=== PATIENT | female | born 1995 | race Caucasian/White ===

== ENCOUNTER 2017-12-24 11:07 | Observation (INO) ==
--- NOTE | 2017-12-24 11:15 | Emergency Department Note ---
Disposition Clinical Impression: Abdominal pain Qualifiers: Abdominal location: right lower quadrant Qualified Code(s): R10.31 - Right lower quadrant pain Nausea & vomiting Qualifiers: Vomiting type: unspecified Vomiting Intractability: intractable Qualified Code( s): R11.2 - Nausea with vomiting, unspecified Disposition: Admitted As Inpatient Condition: Good Time of Disposition: 16:43 General Adult HPI - General Chief complaint: ED Abdominal Pain Stated complaint: abd pain Time Seen by Provider: 12/24/17 11:14 Source: patient Mode of arrival: ambulatory Limitations: no limitations Nursing Notes Reviewed: Yes Vital Signs Reviewed: Yes - History of Present Illness HPI Narrative: 2 day history of abdominal pain. Started her umbilicus yesterday migrated to her right lower quadrant this morning. Nausea vomiting this morning as well. Does have chills but has not taken her temperature. States the pain as a cramping nature. Pain Scale: 8 - Related Data Home Medications Medication Instructions Recorded Confirmed Levonorgestrel [Mirena] 1 each IY PRN PRN 06/15/17 12/24/17 Allergies Allergy/AdvReac Type Severity Reaction Status Date / Time No Known Allergies Allergy Verified 12/24/17 16:26 All systems ED: reviewed and negative except as stated. Constitutional: Reports: chills. Denies: fever Cardiovascular: Denies: chest pain, palpitations, syncope Respiratory: Denies: cough, dyspnea Gastrointestinal: Reports: abdominal pain, nausea, vomiting. Denies: diarrhea, hematemesis, melena, hematochezia Genitourinary: Denies: urgency, dysuria, frequency, hematuria Musculoskeletal: Reports: back pain (Right flank pain that radiates around to her right lower quadrant.) Integumentary: Denies: rash, abrasion Neurological: Denies: headache, weakness Past Medical History - Past Medical History Attestation: Yes The following information was validated with the patient. Source: patient Medical history: Reports: non-contributory Surgical history: Reports: orthopedic, other, other (Exploratory laparoscopy) Psychiatric history: Reports: no psych history BUNDLE TIER history: Reports: no BUNDLE TIER history - Social History Smoking Status: Never smoker Smokeless Tobacco Status: No Alcohol use: Reports: none Drug use: Reports: none Physical Exam - General Limitations: no limitations General appearance: alert, in no apparent distress - Head Head exam: atraumatic, normocephalic, normal inspection - Eye Eye exam: Present: normal appearance, PERRL, EOMI. Absent: scleral icterus - ENT ENT exam: normal exam, normal oropharynx, mucous membranes moist - Neck Neck exam: Present: normal inspection, full ROM, trachea midline. Absent: tenderness - Chest Chest inspection: Present: normal inspection, symmetric chest wall rise - Respiratory Respiratory exam: Present: normal lung sounds bilaterally. Absent: respiratory distress, accessory muscle use - Cardiovascular Cardiovascular exam: Present: normal rhythm, tachycardia, normal heart sounds - Abdominal Exam Abdominal exam: Present: soft, tenderness (Exquisitely tender in right lower quadrant. Positive rebound tenderness.) Course Course Narrative: Female patient sitting in bed sent from urgent care. She is holding her right lower quadrant on my exam. She does appear to be in pain. Is in the middle the night around 2-3 this morning she woke up with right lower quadrant abdominal pain. She states yesterday she had some pain around her umbilicus. His pain is her right lower quadrant as well as her right flank. 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 She reports that last week she had her urethra dilated. She states this has happened several times. She denies any urinary symptoms. She denies any burning on urination or blood in her urine. He had vomiting this morning. At urgent care she was given Phenergan. She states she does not need nausea medication at this time. She is also given Toradol for pain. We will give her fentanyl as she does appear to still be in pain. We will get a basic lab workup on patient inclusive of a UA and urine prey we will also scan patient's abdomen. And concern for possible appendicitis versus a right kidney stone as she does have flank pain. She is exquisitely tender in her right lower quadrant. - Reevaluation(s) Reevaluation #1: Patient reevaluated. She is still having Tenderness in her right lower quadrant. She is also still nauseated. Chilling at this time with multiple blankets on. We will provide her with Tylenol and fluids. We will admit her to the hospital for intractable nausea vomiting. Time: 15:21 - Consultations Consultation #1: Dr Canchola accepted Pt in stable condition Time: 16:40 Vital Signs Temperature 98.4 F 03/17/18 11:08 Pulse Rate 132 12/24/17 11:08 Respiratory Rate 16 12/24/17 11:08 Blood Pressure 135/75 12/24/17 11:08 O2 Sat by Pulse Oximetry 100 12/24/17 11:08 Temperature 98.4 F 12/24/17 16:56 Pulse Rate 117 12/24/17 16:56 Respiratory Rate 18 12/24/17 16:56 Blood Pressure 121/81 12/24/17 16:56 O2 Sat by Pulse Oximetry 100 12/24/17 16:56 Oxygen Delivery Oxygen Delivery Room Air Medical Decision Making - Medical Records Medical records reviewed: Yes I reviewed the patient's medical records. - Lab Data Lab results reviewed: Yes I reviewed the patient's lab results. Result diagrams: 12/24/17 11:22 12/24/17 11:22 Lab Results 12/24/17 12/24/17 12/24/17 Range/Units 11:22 11:22 11:22 WBC 11.5 H (4.3-11.1) K/mcL RBC 5.14 H (3.82-4.97) M/mcL Hgb 14.0 (11.5-15.4) g/dL Hct 42.9 (35.3-44.9) % MCV 83.5 (83.0-100.0) fL MCH 27.2 L (28.0-33.3) pg MCHC 32.6 (31.6-35.5) g/dL RDW 13.1 (11.5-14.5) % Plt Count 324 (140-400) K/mcL MPV 9.1 L (9.4-12.4) fL Immature Gran % 0.2 (0-4) % Seg Neutrophils % 80.1 % Lymphocytes % 11.2 % Monocytes % 8.0 % Eosinophils % 0.2 % Basophils % 0.3 % Neutrophils # 9.2 H (1.6-8.9) K/mcL Lymphocytes # 1.3 (0.6-4.6) K/mcL Monocytes # 0.9 (0.0-1.3) K/mcL Eosinophils # 0.0 (0.0-0.6) K/mcL Basophils # 0.0 (0.0-0.2) K/mcL PT 14.1 H (9.4-12.1) Seconds INR 1.3 APTT 29.4 (26.0-36.0) Seconds Sodium 134 L (136-145) mEq/L Potassium 3.1 L (3.5-5.1) mEq/L Chloride 103 (98-107) mEq/L Carbon Dioxide 25 (23-29) mEq/L BUN 8 (6-20) mg/dL Creatinine 0.68 (0.60-1.20) mg/dL Est GFR ( Amer) > 60 (> 60) Est GFR (Non-Af Amer) > 60 (> 60) BUN/Creatinine Ratio 12 (6-26) Glucose 96 (70-105) mg/dL Calculated Osmolality 276 L (280-300) Lactic Acid (0.5-2.2) mmol/L Calcium 9.0 (8.6-10.3) mg/dL Total Bilirubin 0.7 (0.3-1.0) mg/dL Direct Bilirubin 0.2 (0.0-0.2) mg/dL Indirect Bilirubin 0.5 (0.0-1.2) mg/dL AST 15 (13-39) Units/L ALT 13 (7-52) Units/L Alkaline Phosphatase 73 (34-104) Units/L Serum Total Protein 7.4 (6.4-8.9) g/dL Albumin 4.3 (3.5-5.7) g/dL Globulin 3.1 (2.4-3.5) g/dL Albumin/Globulin Ratio 1.4 (1.1-2.2) Lipase 13 (11-82) Units/L Urine Color (Yellow) Urine Clarity (Clear) Urine pH (5.0-8.0) pH Units Ur Specific [place] (1.010-1.025) Urine Protein (Neg-Trace) mg/dL Urine Glucose (UA) (Normal) mg/dL Urine Ketones (Negative) mg/dL Urine Blood (Negative) Urine Nitrite (Negative) Urine Bilirubin (Negative) Urine Urobilinogen (Normal) mg/dL Ur Leukocyte Esterase (Negative) Urine Microscopic RBC (0-3) per hpf Urine Microscopic WBC (0-3) per hpf Ur Squamous Epith Cells (None-Few) per lpf Urine Bacteria (None-Few) per hpf Hyaline Casts (None-Few) per lpf Ur Culture Indicated? (NO) Urine Test (Negative) 12/24/17 12/24/17 12/24/17 Range/Units 11:22 12:57 12:57 WBC (4.3-11.1) K/mcL RBC (3.82-4.97) M/mcL Hgb (11.5-15.4) g/dL Hct (35.3-44.9) % MCV (83.0-100.0) fL MCH (28.0-33.3) pg MCHC (31.6-35.5) g/dL RDW (11.5-14.5) % Plt Count (140-400) K/mcL MPV (9.4-12.4) fL Immature Gran % (0-4) % Seg Neutrophils % % Lymphocytes % % Monocytes % % Eosinophils % % Basophils % % Neutrophils # (1.6-8.9) K/mcL Lymphocytes # (0.6-4.6) K/mcL Monocytes # (0.0-1.3) K/mcL Eosinophils # (0.0-0.6) K/mcL Basophils # (0.0-0.2) K/mcL PT (9.4-12.1) Seconds INR APTT (26.0-36.0) Seconds Sodium (136-145) mEq/L Potassium (3.5-5.1) mEq/L Chloride (98-107) mEq/L Carbon Dioxide (23-29) mEq/L BUN (6-20) mg/dL Creatinine (0.60-1.20) mg/dL Est GFR ( Amer) (> 60) Est GFR (Non-Af Amer) (> 60) BUN/Creatinine Ratio (6-26) Glucose (70-105) mg/dL Calculated Osmolality (280-300) Lactic Acid 1.5 (0.5-2.2) mmol/L Calcium (8.6-10.3) mg/dL Total Bilirubin (0.3-1.0) mg/dL Direct Bilirubin (0.0-0.2) mg/dL Indirect Bilirubin (0.0-1.2) mg/dL AST (13-39) Units/L ALT (7-52) Units/L Alkaline Phosphatase (34-104) Units/L Serum Total Protein (6.4-8.9) g/dL Albumin (3.5-5.7) g/dL Globulin (2.4-3.5) g/dL Albumin/Globulin Ratio (1.1-2.2) Lipase (11-82) Units/L Urine Color Yellow (Yellow) Urine Clarity Clear (Clear) Urine pH 6.5 (5.0-8.0) pH Units Ur Specific [place] < 1.005 L (1.010-1.025) Urine Protein Negative (Neg-Trace) mg/dL Urine Glucose (UA) Normal (Normal) mg/dL Urine Ketones Negative (Negative) mg/dL Urine Blood Small H (Negative) Urine Nitrite Negative (Negative) Urine Bilirubin Negative (Negative) Urine Urobilinogen Normal (Normal) mg/dL Ur Leukocyte Esterase Negative (Negative) Urine Microscopic RBC 5-15 H (0-3) per hpf Urine Microscopic WBC 0-3 (0-3) per hpf Ur Squamous Epith Cells Moderate H (None-Few) per lpf Urine Bacteria None Seen (None-Few) per hpf Hyaline Casts None Seen (None-Few) per lpf Ur Culture Indicated? NO (NO) Urine Test Negative (Negative) - Radiology Data Radiology results reviewed: Yes I reviewed the patient's radiology results. Abdomen/Pelvis CT 12/24/17 11:45 IMPRESSION: Negative noncontrast CT of the abdomen and pelvis. D/ / Drake Bernstein MD / Drake Bernstein MD Interpreting Provider: Drake Bernstein MD Chest X-Ray 12/24/17 15:20 IMPRESSION: No acute cardiopulmonary findings. D/ / Jaqui Kohli MD / Jaqui Kohli MD Interpreting Provider: Jaqui Kohli MD Attestation Statement - Attestation Attestation: I examined this patient and my medical decision-making was reviewed with the Resident Physician, Dr. Friedman. I agree with the documented findings, disposition and treatment plan as described except to the extent set forth below. 22-year-old white female was sent to us from an urgent care today with a 2 day history of gradually worsening right lower quadrant pain with concern for possible appendicitis. Patient having nausea and vomiting associated with this pain. Patient describes subjective fevers and chills as well. Patient states that the pain radiates through to her back on the right side. Patient denies any urinary symptoms. I agree with patient's physical exam findings as documented. For me patient had tenderness to palpation of the right lower quadrant without peritoneal signs. Immediately stable on arrival does appear uncomfortable we treated her pain with IV meds and antiemetics and laboratory evaluation and urinalysis as well as CT abdomen and pelvis to rule out appendectomy. Patient with mild elevation in white count with left shift. Otherwise remainder of testings unremarkable. CT abdomen and pelvis was within normal limits with no abnormal findings. Patient continues to have ongoing pain and quite uncomfortable and unable tolerate by mouth. We will go ahead and admit the patient for serial abdominal exams and reevaluation. Patient remains hemodynamically stable at this time.
[2017-12-24] MEDS ORDERED: 0.9 % Sodium Chloride 1,000 ML IVC ONE ×2 (11:19→15:18)
[2017-12-24] MEDS ORDERED: Ondansetron 4 MG/2 ML VIAL IVP ONE ×2 (11:45→13:51)
[2017-12-24] MEDS ORDERED: *HR* FentaNYL (PF) 100 MCG/2 ML VIAL IVP ONE (11:46)
[2017-12-24 11:54] LABS: Basophils % 0.3 %; Eosinophils % 0.2 %; Hematocrit 42.9 % (35.3-44.9); Immature Granulocytes % 0.2 % (0-4); Lymphocytes # 1.3 K/mcL (0.6-4.6); Lymphocytes % 11.2 %; Mean Corpuscular HGB Conc 32.6 g/dL (31.6-35.5); Mean Corpuscular Hemoglobin 27.2 pg (28.0-33.3); Mean Corpuscular Volume 83.5 fL (83.0-100.0); Mean Platelet Volume 9.1 fL (9.4-12.4); Monocytes # 0.9 K/mcL (0.0-1.3); Neutrophils # 9.2 K/mcL (1.6-8.9); Platelet Count 324 K/mcL (140-400); Red Blood Count 5.14 M/mcL (3.82-4.97); Red Cell Distribution Width 13.1 % (11.5-14.5); Segmented Neutrophils % 80.1 %
[2017-12-24 12:01] LABS: INR 1.3; Prothrombin Time 14.1 Seconds (9.4-12.1)
[2017-12-24 12:04] LABS: Activated Partial Thrombo Time 29.4 Seconds (26.0-36.0)
[2017-12-24 12:07] LABS: Alanine Aminotransferase 13 Units/L (7-52); Albumin 4.3 g/dL (3.5-5.7); Albumin/Globulin Ratio 1.4 (1.1-2.2); Alkaline Phosphatase 73 Units/L (34-104); Aspartate Amino Transferase 15 Units/L (13-39); BUN/Creatinine Ratio 12 (6-26); Bilirubin,Direct 0.2 mg/dL (0.0-0.2); Bilirubin,Indirect 0.5 mg/dL (0.0-1.2); Bilirubin,Total 0.7 mg/dL (0.3-1.0); Blood Urea Nitrogen 8 mg/dL (6-20); Carbon Dioxide 25 mEq/L (23-29); Chloride 103 mEq/L (98-107); Globulin 3.1 g/dL (2.4-3.5); Glucose 96 mg/dL (70-105); Lipase 13 Units/L (11-82); Osmolality,Calculated 276 (280-300); Potassium 3.1 mEq/L (3.5-5.1); Sodium 134 mEq/L (136-145); Total Protein 7.4 g/dL (6.4-8.9); eGFR For African Americans > 60 (> 60); eGFR For Non-African Americans > 60 (> 60)
[2017-12-24 13:10] LABS: Bilirubin,Urine Negative (Negative); Blood,Urine Small (Negative); Clarity,Urine Clear (Clear); Color,Urine Yellow (Yellow); Glucose,Urine (UA) Normal (Normal); Ketones,Urine Negative (Negative); Leukocyte Esterase,Urine Negative (Negative); Nitrite,Urine Negative (Negative); PH,Urine 6.5 pH Units (5.0-8.0); Protein,Urine Negative (Neg-Trace); Specific Gravity,Urine < 1.005 (1.010-1.025); Urobilinogen,Urine Normal (Normal)
[2017-12-24 13:12] LABS: Bacteria,Urine None Seen per hpf (None-Few); Hyaline Casts,Urine None Seen per lpf (None-Few); Squamous Epithelial Cell,Urine Moderate per lpf (None-Few); WBC,Urine 0-3 per hpf (0-3)
[2017-12-24] MEDS ORDERED: Acetaminophen 325 MG TABLET PO ONE (15:05)
[2017-12-24] MEDS: *HR* Promethazine 25 MG/ML VIAL IVP PRN (17:23)
--- NOTE | 2017-12-24 17:43 | Internal Med History&Physical ---
Date of Encounter: 12/24/17 Time of Encounter: 17:30 Assessment and Plan (1) RLQ abdominal pain Current visit: Yes Status: Acute -Patient with right lower quadrant tenderness to palpation on exam -In the ER, CT of the abdomen showed no acute findings and appendix was normal -Patient also with low-grade temp and slight leukocytosis -Surgery consult with recommendations to treat prophylactically for PID -Ultrasound not available on the weekend for transvaginal ultrasound -Will start patient on IV doxycycline and Rocephin -Patient will also be made nothing by mouth (2) DVT prophylaxis Current visit: No Status: Acute Low risk; patient to ambulate Internal Medicine - H&P: HPI Chief complaint: Right lower quadrant abdominal pain Admitted From: Home Plans for Post Hospital Care: Home History of present illness: Patient is a 22-year-old female who presents to the ER on 12/24/17 due to right lower quadrant abdominal pain. She reported that her right lower quadrant abdominal pain started on 12/23/17 and characterized as sharp with a severity of 8 out of 10 which is intermittent with movement provoking discomfort and nothing giving any relief. Patient reports of associated symptoms of nausea/vomiting and addition to having fevers and chills. Patient reported having a urethral dilation on 12/22/17. Patient also has IUD placed 09/2016 denies any vaginal discharge. Patient does report history of ovarian cyst past. In the ER, CT of the abdomen showed no acute findings and appendix was normal; IUD centrally located in the uterus. Patient was found to have slight leukocytosis (WBC 11.5), tachycardic (HR 103) and low grade temperature of 100.1 Patient will be admitted to medical surgical floor for further management and evaluation. Past Med Surg Social Fam HX - Past Medical History Medical history: non-contributory Psychiatric history: no psych history - Past Surgical History Surgical History: orthopedic, other, other - Social History Smoking Status: Never smoker Smokeless Tobacco Status: No Alcohol use: none Drug use: none - Family History Mother Grandmother Adopted: No Living Status: Still Living Hx Family Cardiac Disorders: Yes (HTN) Grandfather Living Status: Still Living Hx Family Cardiac Disorders: Yes (HTN) Internal Medicine - H&P: Meds Levonorgestrel [Mirena] 1 each IY PRN PRN 06/15/17 [History] 3 Allergy/AdvReac Type Severity Reaction Status Date / Time No Known Allergies Allergy Verified 12/24/17 16:26 All Systems PM: A 10-system review of systems was performed and is negative for pertinent findings except as documented above in the HPI. - Constitutional Vitals: Temp Pulse Resp BP Pulse Ox 98.4 F 117 18 121/81 100 12/24/17 16:56 12/24/17 16:56 12/24/17 16:56 12/24/17 16:56 12/24/17 16:56 General appearance: Present: no acute distress - Eye Eye exam: Present: normal appearance - ENT ENT exam: Present: mucous membranes moist - Respiratory Respiratory exam: Present: CTAB. Absent: accessory muscle use, rales, rhonchi, wheezes - Cardiovascular Cardiovascular exam: Present: RRR, +S1, +S2. Absent: diastolic murmur, gallop, rubs, systolic murmur - GI/Abdominal GI/Abdominal exam: Present: hepatomegaly, normal bowel sounds, soft, tenderness (Right lower quadrant tenderness to palpation). Absent: distended, firm, guarding, rebound, rigid, no peritoneal signs - Extremities Exam Extremities exam: Present: warm. Absent: pedal edema - Neurological Exam Neurological exam: Present: oriented X3 - Skin Skin exam: Present: normal color Internal Med - H&P Results - Labs CBC & Chem 7: 12/24/17 11:22 12/24/17 11:22
[2017-12-24] MEDS ORDERED: Naloxone 0.4 MG/ML INJ IVP PRN (17:48)
[2017-12-24] MEDS: cefTRIAXone 2,000 MG in Water for inj. (sterile) 20 ML 20 ML IVP SCH (18:17)
[2017-12-24] MEDS: 0.9 % Sodium Chloride 1,000 ML IVC SCH (18:17)
[2017-12-24] MEDS: Doxycycline 100 MG in 0.9 % Sodium Chloride Mini Bag 100 ML IVPB SCH (18:41)
[2017-12-25] MEDS: Ketorolac 30 MG/ML VIAL IVP PRN ×2 (00:44→08:03)
[2017-12-25 05:04] LABS: Hematocrit 37.3 % (35.3-44.9); Mean Corpuscular HGB Conc 31.6 g/dL (31.6-35.5); Mean Corpuscular Hemoglobin 27.1 pg (28.0-33.3); Mean Corpuscular Volume 85.6 fL (83.0-100.0); Mean Platelet Volume 9.2 fL (9.4-12.4); Platelet Count 247 K/mcL (140-400); Red Blood Count 4.36 M/mcL (3.82-4.97); Red Cell Distribution Width 13.2 % (11.5-14.5)
[2017-12-25 05:05] LABS: Hemoglobin 11.8 g/dL (11.5-15.4)
[2017-12-25 05:22] LABS: Alanine Aminotransferase 10 Units/L (7-52); Albumin 3.3 g/dL (3.5-5.7); Albumin/Globulin Ratio 1.3 (1.1-2.2); Alkaline Phosphatase 60 Units/L (34-104); Aspartate Amino Transferase 12 Units/L (13-39); BUN/Creatinine Ratio 14 (6-26); Bilirubin,Total 0.4 mg/dL (0.3-1.0); Blood Urea Nitrogen 8 mg/dL (6-20); Carbon Dioxide 24 mEq/L (23-29); Chloride 110 mEq/L (98-107); Globulin 2.5 g/dL (2.4-3.5); Glucose 86 mg/dL (70-105); Osmolality,Calculated 286 (280-300); Potassium 3.3 mEq/L (3.5-5.1); Sodium 139 mEq/L (136-145); Total Protein 5.8 g/dL (6.4-8.9); eGFR For African Americans > 60 (> 60); eGFR For Non-African Americans > 60 (> 60)
[2017-12-25] MEDS: Doxycycline 100 MG in 0.9 % Sodium Chloride Mini Bag 100 ML IVPB SCH ×2 (06:16→18:19)
[2017-12-25] MEDS: 0.9 % Sodium Chloride 1,000 ML IVC SCH (06:17)
--- NOTE | 2017-12-25 11:50 | General Surgery Consult Note ---
Date of Encounter: 12/25/17 Time of Encounter: 11:00 Assessment and Plan (1) Abdominal pain Current Visit: Yes Status: Acute The patient has new onset right lower quadrant abdominal pain. CAT scan is negative for abscess or inflammation. There is no evidence of appendicitis or tubo-ovarian abscess. The patient does have an intrauterine IUD. The differential diagnosis is gastroenteritis, mittelschmerz, ruptured ovarian cyst , ascending infection secondary to IUD. I recommended a period of observation as well as antibiotic therapy directed at descending uterine infections. We will be glad to follow along with you. No surgical exploration or laparoscopy indicated at this time. Qualifiers: Abdominal location: right lower quadrant Qualified Code(s): R10.31 - Right lower quadrant pain History of Present Illness Consult date: 12/25/17 Reason for consult: abdominal pain History of present illness: The patient developed right lower quadrant abdominal pain yesterday. She sought evaluation in the emergency room last evening. Her white blood cell count was slightly elevated at 11,000. She was complaining of new onset right lower quadrant abdominal pain. She does have an IUD in place. CAT scan of the abdomen demonstrated no evidence of abscess or inflammation. No evidence of appendicitis. There was no evidence of terminal ileitis or lymphadenitis. I personally reviewed the CAT scan films. I agree with this negative reading. IUD clearly visible The patient has not previously had had any episodes of abdominal pain of this nature. She has normal bowel movements. There is no rectal bleeding. No vaginal discharge. Past Med Surg Social Fam HX - Past Medical History Medical history: non-contributory Psychiatric history: no psych history - Past Surgical History Surgical History: orthopedic, other, other - Social History Smoking Status: Never smoker Smokeless Tobacco Status: No Alcohol use: none Drug use: none - Family History Mother Grandmother Adopted: No Living Status: Still Living Hx Family Cardiac Disorders: Yes (HTN) Grandfather Living Status: Still Living Hx Family Cardiac Disorders: Yes (HTN) Medications and Allergies Levonorgestrel [Mirena] 1 each IY PRN PRN 06/15/17 [History] 3 Allergy/AdvReac Type Severity Reaction Status Date / Time No Known Allergies Allergy Verified 12/24/17 16:26 Review of Systems All systems PM: The remainder of the systems were reviewed and are negative General Surgery Exam Initial Vital Signs Temp Pulse Resp BP Pulse Ox 98.4 F 132 16 135/75 100 12/24/17 11:08 12/24/17 11:08 12/24/17 11:08 12/24/17 11:08 12/24/17 11:08 - General physical appearance well developed, well nourished, no distress, obese - Respiratory normal expansion, normal respiratory effort, clear to percussion, clear to auscultation - Cardiovascular Cardiovascular exam: Present: RRR, no murmurs/rubs/gallops - Abdomen Abdomen general surgery: Present: tender (No guarding no rebound and no diffuse peritoneal signs.) Abdominal Tenderness: Present: RLQ - Integumentary Integumentary general surgery: Present: warm and dry, no abnormal pigmentation - Neurologic Present: CN 2-12 grossly intact, normal coordination, normal sensation - Psychiatric Psychiatric general surgery: Present: appropriate, oriented to person, oriented to place, oriented to time, speech is normal, memory intact Exam Initial Vital Signs Temp Pulse Resp BP Pulse Ox 98.4 F 132 16 135/75 100 12/24/17 11:08 12/24/17 11:08 12/24/17 11:08 12/24/17 11:08 12/24/17 11:08 Results - Labs 12/25/17 04:30 12/25/17 04:30 Abnormal lab results MCH 27.1 pg (28.0-33.3) L 12/25/17 04:30 MPV 9.2 fL (9.4-12.4) L 12/25/17 04:30 Neutrophils # 9.2 K/mcL (1.6-8.9) H 12/24/17 11:22 PT 14.1 Seconds (9.4-12.1) H 12/24/17 11:22 Potassium 3.3 mEq/L (3.5-5.1) L 12/25/17 04:30 Chloride 110 mEq/L (98-107) H 12/25/17 04:30 Creatinine 0.58 mg/dL (0.60-1.20) L 12/25/17 04:30 Calcium 8.0 mg/dL (8.6-10.3) L 12/25/17 04:30 AST 12 Units/L (13-39) L 12/25/17 04:30 Serum Total Protein 5.8 g/dL (6.4-8.9) L 12/25/17 04:30 Albumin 3.3 g/dL (3.5-5.7) L 12/25/17 04:30 Ur Specific [place] < 1.005 (1.010-1.025) L 12/24/17 12:57 Urine Blood Small (Negative) H 12/24/17 12:57 Urine Microscopic RBC 5-15 per hpf (0-3) H 12/24/17 12:57 Ur Squamous Epith Cells Moderate per lpf (None-Few) H 12/24/17 12:57 Diabetes panel 12/25/17 Range/Units 04:30 Sodium 139 (136-145) mEq/L Potassium 3.3 L (3.5-5.1) mEq/L Chloride 110 H (98-107) mEq/L Carbon Dioxide 24 (23-29) mEq/L BUN 8 (6-20) mg/dL Creatinine 0.58 L (0.60-1.20) mg/dL Glucose 86 (70-105) mg/dL Calcium 8.0 L (8.6-10.3) mg/dL AST 12 L (13-39) Units/L ALT 10 (7-52) Units/L Alkaline Phosphatase 60 (34-104) Units/L Albumin 3.3 L (3.5-5.7) g/dL Calcium panel 12/25/17 Range/Units 04:30 Calcium 8.0 L (8.6-10.3) mg/dL Albumin 3.3 L (3.5-5.7) g/dL Pituitary panel 12/25/17 Range/Units 04:30 Sodium 139 (136-145) mEq/L Potassium 3.3 L (3.5-5.1) mEq/L Chloride 110 H (98-107) mEq/L Carbon Dioxide 24 (23-29) mEq/L BUN 8 (6-20) mg/dL Creatinine 0.58 L (0.60-1.20) mg/dL Glucose 86 (70-105) mg/dL Calcium 8.0 L (8.6-10.3) mg/dL Adrenal panel 12/25/17 Range/Units 04:30 Sodium 139 (136-145) mEq/L Potassium 3.3 L (3.5-5.1) mEq/L Chloride 110 H (98-107) mEq/L Carbon Dioxide 24 (23-29) mEq/L BUN 8 (6-20) mg/dL Creatinine 0.58 L (0.60-1.20) mg/dL Glucose 86 (70-105) mg/dL Calcium 8.0 L (8.6-10.3) mg/dL Total Bilirubin 0.4 (0.3-1.0) mg/dL AST 12 L (13-39) Units/L ALT 10 (7-52) Units/L Alkaline Phosphatase 60 (34-104) Units/L Albumin 3.3 L (3.5-5.7) g/dL All other labs normal. - Imaging CT scan - abdomen: image reviewed (I personally reviewed the CAT scan of the abdomen. Findings are normal. Intrauterine IUD identified.) Consult Discharge Plan - Plan Referrals: Saran Reyes DO [Primary Care Provider] -
[2017-12-25] MEDS ORDERED: Acetaminophen 650 MG RECTAL SUPP RC PRN (15:21)
[2017-12-25] MEDS ORDERED: Acetaminophen 325 MG TABLET PO PRN ×2 (15:57→19:32)
--- NOTE | 2017-12-25 17:21 | Internal Med Progress Note ---
Date of Encounter: 12/25/17 Time of Encounter: 11:00 - Assessment and plan (1) RLQ abdominal pain Current Visit: Yes Status: Acute Assessment and plan: Patient with slight improvement in the right lower quadrant abdominal pain this morning CT of the abdomen/pelvis without any acute findings Gen. surgery consult with recommendations for continued management with IV antibiotics Trans-vaginal ultrasound ordered and is pending (2) DVT prophylaxis Current Visit: No Status: Acute Assessment and plan: Low risk; patient to ambulate - Subjective Interval history: She reports a slight improvement in the lower abdominal pain this morning She remains afebrile and now leukocytosis has resolved - Constitutional Vitals: Temp Pulse Resp BP Pulse Ox 98.6 F 81 14 131/84 100 12/25/17 16:01 12/25/17 16:01 12/25/17 16:01 12/25/17 16:01 12/25/17 16:01 General appearance: Present: no acute distress - Respiratory Respiratory exam: Present: CTAB. Absent: accessory muscle use, rales, rhonchi, wheezes - Cardiovascular Cardiovascular exam: Present: RRR, +S1, +S2. Absent: diastolic murmur, gallop, rubs, systolic murmur Internal Medicine: Result - Labs CBC & Chem 7: 12/25/17 04:30 12/25/17 04:30 Labs: Short CBC 12/25/17 Range/Units 04:30 WBC 5.5 D (4.3-11.1) K/mcL Hgb 11.8 D (11.5-15.4) g/dL Hct 37.3 (35.3-44.9) % Plt Count 247 (140-400) K/mcL BMP 12/25/17 04:30 Sodium 139 Potassium 3.3 L Chloride 110 H Carbon Dioxide 24 BUN 8 Creatinine 0.58 L Glucose 86 Calcium 8.0 L Liver Function 12/25/17 Range/Units 04:30 Total Bilirubin 0.4 (0.3-1.0) mg/dL AST 12 L (13-39) Units/L ALT 10 (7-52) Units/L Alkaline Phosphatase 60 (34-104) Units/L Albumin 3.3 L (3.5-5.7) g/dL - ABG Interpretation ABG results: PT/INR, D-dimer PT 14.1 Seconds (9.4-12.1) H 12/24/17 11:22 - VTE Reasons for not Prescribing Prophylaxis: Treatment not Indicated - Low risk for VTE Consult Discharge Plan - Plan Referrals: Saran Reyes DO [Primary Care Provider] -
[2017-12-25] MEDS: *HR* Promethazine 25 MG/ML VIAL IVP PRN (17:46)
[2017-12-25] MEDS: cefTRIAXone 2,000 MG in Water for inj. (sterile) 20 ML 20 ML IVP SCH (18:19)
[2017-12-26] MEDS: Doxycycline 100 MG in 0.9 % Sodium Chloride Mini Bag 100 ML IVPB SCH (05:12)
[2017-12-26] MEDS: Ketorolac 30 MG/ML VIAL IVP PRN (05:14)
[2017-12-26 10:21] LABS: Basophils % 0.6 %; Eosinophils # 0.3 K/mcL (0.0-0.6); Eosinophils % 4.7 %; Hemoglobin 11.8 g/dL (11.5-15.4); Immature Granulocytes % 0.2 % (0-4); Lymphocytes # 2.2 K/mcL (0.6-4.6); Lymphocytes % 33.7 %; Mean Corpuscular HGB Conc 32.8 g/dL (31.6-35.5); Mean Corpuscular Hemoglobin 27.8 pg (28.0-33.3); Mean Corpuscular Volume 84.7 fL (83.0-100.0); Mean Platelet Volume 9.2 fL (9.4-12.4); Monocytes # 0.8 K/mcL (0.0-1.3); Monocytes % 11.7 %; Neutrophils # 3.2 K/mcL (1.6-8.9); Platelet Count 267 K/mcL (140-400); Red Blood Count 4.25 M/mcL (3.82-4.97); Red Cell Distribution Width 13.5 % (11.5-14.5); Segmented Neutrophils % 49.1 %
[2017-12-26 10:41] LABS: BUN/Creatinine Ratio 12 (6-26); Blood Urea Nitrogen 6 mg/dL (6-20); Calcium 8.2 mg/dL (8.6-10.3); Carbon Dioxide 26 mEq/L (23-29); Chloride 111 mEq/L (98-107); Glucose 89 mg/dL (70-105); Osmolality,Calculated 289 (280-300); Potassium 3.5 mEq/L (3.5-5.1); Sodium 141 mEq/L (136-145); eGFR For African Americans > 60 (> 60); eGFR For Non-African Americans > 60 (> 60)
[2017-12-26 14:36] VITALS: BP 133/90
--- NOTE | 2017-12-26 14:58 | Discharge Summary ---
- NOTES TO OUTPATIENT PROVIDER Notes to Outpatient Provider: Follow-up with [employer] for pelvic exam Date of Encounter: 12/26/17 Time of Encounter: 14:30 - Discharge Diagnosis (1) RLQ abdominal pain Priority: Primary Status: Acute (2) PID (acute pelvic inflammatory disease) Priority: Primary Status: Acute Hospital course: Patient is a 22-year-old female who presents to the ER on 12/24/17 due to right lower quadrant abdominal pain. She reported that her right lower quadrant abdominal pain started on 12/23/17 and characterized as sharp with a severity of 8 out of 10 which is intermittent with movement provoking discomfort and nothing giving any relief. Patient reports of associated symptoms of nausea/vomiting and addition to having fevers and chills. Patient reported having a urethral dilation on 12/22/17. Patient also has IUD placed 09/2016 denies any vaginal discharge. Patient does report history of ovarian cyst past. In the ER, CT of the abdomen showed no acute findings and appendix was normal; IUD centrally located in the uterus. Patient was found to have slight leukocytosis (WBC 11.5), tachycardic (HR 103) and low grade temperature of 100.1 Patient will be admitted to medical surgical floor for further management and evaluation. During patients hospital stay patient was treated for pelvic inflammatory disease with IV doxycycline and ceftriaxone. Abdominal/pelvis CT showed normal appendix and no acute findings in the abdomen. Transvaginal ultrasound showed intrauterine device in situ with follicular/cyst and a small amount of cul-de-sac fluid. Patients abdominal discomfort improved with antibiotic treatment. She will be discharged to follow up with [employer] for further management and evaluation. - Time Spent with Patient Total time spent providing and/or coordinating discharge services: Less than 30 minutes - Discharge Medications Prescriptions: Doxycycline 100 mg PO BID 14 Days #28 capsule metroNIDAZOLE [Metronidazole] 500 mg PO BID 14 Days #28 tablet Home Medications: Levonorgestrel [Mirena] 1 each IY PRN PRN 06/15/17 [History] Doxycycline 100 mg PO BID 14 Days #28 capsule 12/26/17 [Rx] metroNIDAZOLE [Metronidazole] 500 mg PO BID 14 Days #28 tablet 12/26/17 [Rx] Allergies/Adverse Reactions: 3 Allergy/AdvReac Type Severity Reaction Status Date / Time No Known Allergies Allergy Verified 12/24/17 16:26 Date of admission: 12/24/17 16:15 Primary care physician: Saran Reyes DO Consults: 12/24/17 17:54 Consult to Surgery [CONS] Routine Consulting Provider: [facility] Reason for Consult: Right lower quadrant abdominal pain Time Notified: 17:30 Call Completed: Yes - Constitutional Vitals: Temp Pulse Resp BP Pulse Ox 98.1 F 79 16 133/90 99 12/26/17 14:34 12/26/17 14:34 12/26/17 14:34 12/26/17 14:34 12/26/17 14:34 General appearance: Present: no acute distress - Patient Status Disposition: Home, Self-Care Condition: Good - Discharge Instructions Follow Up With: Elina Ku, IT SECURITY ENGINEER [Advanced Practice Nurse] - 01/03/18 9:00 am Forms: Work/School Release - VTE Reasons for not Prescribing Prophylaxis: Treatment not Indicated - Low risk for VTE
--- NOTE | 2017-12-26 15:10 | Event Note ---
Date of Encounter: 12/26/17 Time of Encounter: 15:09 Noted resolution of right lower quadrant pain. No acute surgical intervention remains indicated at this time. Surgery will sign off at this time. No outpatient surgical follow-up needed. Thank you for allowing us to participate in 's care.
--- NOTE | 2017-12-28 18:47 | Electrocardiograph Report ---
[place] [id number] Test Date: 2017-12-24 Pat Name: Alexandra Manjarrez Department: 103 Room: 3A35 Gender: F Dietetic Tech: : 1995 Requested By: Maggie Friedman Order Number: [id number] Reading MD: Alejandro Leal MD Measurements Intervals [place] Rate: 95 P: 43 MS: 177 QRS: -28 QRSD: 106 T: 11 QT: 366 QTc: 418 Interpretive Statements SINUS RHYTHM BORDERLINE LEFT AXIS DEVIATION VOLTAGE CRITERIA FOR LVH Poor R wave progression Electronically Signed On 12-28-2017 18:45:32 EDT by Alejandro Leal MD
== END 2017-12-26 15:48 | disposition home or self-care (01) ==
LOC: EMEROO 11:07 → 3NENU 11:07 → 3ANU 12-26 10:03
PROVIDERS: ADMIT Student in an Organized Health Care Education/Training Program; ATTEND Hospitalist

== ENCOUNTER 2020-02-12 14:18 | Observation (INO) ==
[2020-02-12 12:28] LABS: Basophils % 0.2 %; Eosinophils # 0.1 K/mcL (0.0-0.6); Eosinophils % 0.8 %; Hematocrit 32.8 % (35.3-44.9); Hemoglobin 10.9 g/dL (11.5-15.4); Immature Granulocytes % 0.6 % (0-4); Lymphocytes # 2.1 K/mcL (0.6-4.6); Lymphocytes % 17.1 %; Mean Corpuscular HGB Conc 33.2 g/dL (31.6-35.5); Mean Corpuscular Hemoglobin 27.4 pg (28.0-33.3); Mean Corpuscular Volume 82.4 fL (83.0-100.0); Monocytes # 0.8 K/mcL (0.0-1.3); Neutrophils # 9.4 K/mcL (1.6-8.9); Platelet Count 311 K/mcL (140-400); Red Blood Count 3.98 M/mcL (3.82-4.97); Red Cell Distribution Width 13.4 % (11.5-14.5); Segmented Neutrophils % 75.3 %; White Blood Count 12.5 K/mcL (4.3-11.1)
[2020-02-12 12:38] LABS: Protein/Creatinine Ratio,Urine 0.19 mg/mg (0.00-0.20)
[2020-02-12 13:04] LABS: Alanine Aminotransferase 22 Units/L (7-52); Aspartate Amino Transferase 16 Units/L (13-39); BUN/Creatinine Ratio 11 (6-26); Blood Urea Nitrogen 4 mg/dL (6-20); Lactate Dehydrogenase 166 Units/L (140-271); Uric Acid 3.1 mg/dL (2.3-7.6); eGFR For African Americans > 60 (> 60); eGFR For Non-African Americans > 60 (> 60)
== END 2020-02-12 16:55 | disposition home or self-care (01) ==
LOC: 1NENULAB
PROVIDERS: ADMIT Advanced Practice Midwife; ATTEND Advanced Practice Midwife

== ENCOUNTER → 2020-02-24 23:06 | Observation (INO) ==
[2020-02-24 21:28] LABS: Basophils % 0.2 %; Eosinophils # 0.2 K/mcL (0.0-0.6); Eosinophils % 1.1 %; Hematocrit 30.3 % (35.3-44.9); Hemoglobin 9.8 g/dL (11.5-15.4); Immature Granulocytes % 0.6 % (0-4); Lymphocytes # 2.2 K/mcL (0.6-4.6); Mean Corpuscular HGB Conc 32.3 g/dL (31.6-35.5); Mean Corpuscular Hemoglobin 27.1 pg (28.0-33.3); Mean Corpuscular Volume 83.9 fL (83.0-100.0); Mean Platelet Volume 9.2 fL (9.4-12.4); Monocytes # 0.9 K/mcL (0.0-1.3); Monocytes % 6.1 %; Neutrophils # 10.6 K/mcL (1.6-8.9); Platelet Count 319 K/mcL (140-400); Red Blood Count 3.61 M/mcL (3.82-4.97); Red Cell Distribution Width 13.5 % (11.5-14.5); White Blood Count 13.9 K/mcL (4.3-11.1)
[2020-02-24 21:43] LABS: Creatinine,Urine 21 mg/dL
[2020-02-24 21:47] LABS: Alanine Aminotransferase 16 Units/L (7-52); Aspartate Amino Transferase 14 Units/L (13-39); BUN/Creatinine Ratio 12 (6-26); Blood Urea Nitrogen 5 mg/dL (6-20); Lactate Dehydrogenase 160 Units/L (140-271); Uric Acid 3.6 mg/dL (2.3-7.6); eGFR For African Americans > 60 (> 60); eGFR For Non-African Americans > 60 (> 60)
[~2020-02-24 23:06] MED LIST: *HR* Labetalol 20 MG/4 ML SYRINGE IVP PRN; Ringers Solution, Lactated 1,000 ML IVC SCH; Ringers Solution, Lactated 1,000 ML ONE
== END | disposition home or self-care (01) ==
LOC: 1NENULAB
PROVIDERS: ADMIT Advanced Practice Midwife; ATTEND Advanced Practice Midwife

== ENCOUNTER → 2020-02-26 15:35 | Observation (INO) ==
[2020-02-26 13:27] LABS: Basophils % 0.3 %; Eosinophils # 0.1 K/mcL (0.0-0.6); Eosinophils % 0.9 %; Hematocrit 29.9 % (35.3-44.9); Hemoglobin 9.8 g/dL (11.5-15.4); Immature Granulocytes % 0.5 % (0-4); Lymphocytes # 1.8 K/mcL (0.6-4.6); Lymphocytes % 13.9 %; Mean Corpuscular HGB Conc 32.8 g/dL (31.6-35.5); Mean Corpuscular Hemoglobin 27.6 pg (28.0-33.3); Mean Corpuscular Volume 84.2 fL (83.0-100.0); Mean Platelet Volume 9.3 fL (9.4-12.4); Monocytes # 0.7 K/mcL (0.0-1.3); Monocytes % 5.3 %; Neutrophils # 10.4 K/mcL (1.6-8.9); Platelet Count 305 K/mcL (140-400); Red Blood Count 3.55 M/mcL (3.82-4.97); Red Cell Distribution Width 13.8 % (11.5-14.5); Segmented Neutrophils % 79.1 %; White Blood Count 13.1 K/mcL (4.3-11.1)
[2020-02-26 13:41] LABS: Protein/Creatinine Ratio,Urine 0.26 mg/mg (0.00-0.20)
[2020-02-26 15:06] LABS: Alanine Aminotransferase 17 Units/L (7-52); Aspartate Amino Transferase 16 Units/L (13-39); BUN/Creatinine Ratio 10 (6-26); Blood Urea Nitrogen 4 mg/dL (6-20); Lactate Dehydrogenase 156 Units/L (140-271); Uric Acid 3.7 mg/dL (2.3-7.6); eGFR For African Americans > 60 (> 60); eGFR For Non-African Americans > 60 (> 60)
[~2020-02-26 15:35] MED LIST changes: -*HR* Labetalol 20 MG/4 ML SYRINGE IVP PRN; +Betamethasone Acet/SodPhos 30 MG/5 ML VIAL IM SCH; +NIFEdipine XL (24 HR) 30 MG TAB.ER.24 PO SCH; -Ringers Solution, Lactated 1,000 ML IVC SCH; -Ringers Solution, Lactated 1,000 ML ONE
== END | disposition home or self-care (01) ==
LOC: 1NENULAB
PROVIDERS: ADMIT Advanced Practice Midwife; ATTEND Advanced Practice Midwife

== ENCOUNTER → 2020-02-29 20:37 | Observation (INO) ==
[2020-02-29 19:40] LABS: Alanine Aminotransferase 29 Units/L (7-52); Aspartate Amino Transferase 25 Units/L (13-39); BUN/Creatinine Ratio 11 (6-26); Blood Urea Nitrogen 5 mg/dL (6-20); Lactate Dehydrogenase 222 Units/L (140-271); Uric Acid 3.2 mg/dL (2.3-7.6); eGFR For African Americans > 60 (> 60); eGFR For Non-African Americans > 60 (> 60)
[2020-02-29 19:40] LABS: Basophils % 0.2 %; Eosinophils # 0.1 K/mcL (0.0-0.6); Eosinophils % 0.5 %; Hemoglobin 10.1 g/dL (11.5-15.4); Immature Granulocytes % 0.7 % (0-4); Lymphocytes # 2.5 K/mcL (0.6-4.6); Lymphocytes % 15.9 %; Mean Corpuscular HGB Conc 31.6 g/dL (31.6-35.5); Mean Corpuscular Hemoglobin 27.2 pg (28.0-33.3); Mean Corpuscular Volume 86.3 fL (83.0-100.0); Mean Platelet Volume 9.4 fL (9.4-12.4); Monocytes # 1.2 K/mcL (0.0-1.3); Monocytes % 7.6 %; Neutrophils # 11.7 K/mcL (1.6-8.9); Platelet Count 313 K/mcL (140-400); Red Blood Count 3.71 M/mcL (3.82-4.97); Red Cell Distribution Width 13.8 % (11.5-14.5); Segmented Neutrophils % 75.1 %; White Blood Count 15.5 K/mcL (4.3-11.1)
[~2020-02-29 20:37] MED LIST changes: +*HR* Labetalol 20 MG/4 ML SYRINGE IVP ONE; -Betamethasone Acet/SodPhos 30 MG/5 ML VIAL IM SCH; +Calcium Gluconate 1,000 MG/10 ML VIAL ONE; +Magnesium Sulf 20 gm/SW 500mL 20 GM/500 ML IV.SOLN IVC SCH; -NIFEdipine XL (24 HR) 30 MG TAB.ER.24 PO SCH; +Ringers Solution, Lactated 1,000 ML ONE
== END | disposition short-term general hospital (02) ==
LOC: 1NENULAB
PROVIDERS: ADMIT Obstetrics & Gynecology; ATTEND Obstetrics & Gynecology

== ENCOUNTER 2020-03-07 16:26 | Observation (INO) ==
[2020-03-07] MEDS ORDERED: NIFEdipine 10 MG CAPSULE PO ONE (16:55)
[2020-03-07] MEDS ORDERED: NIFEdipine XL (24 HR) 30 MG TAB.ER.24 PO SCH (20:00)
[2020-03-07 22:54] VITALS: BP 143/97
== END 2020-03-07 23:08 | disposition home or self-care (01) ==
LOC: 1NENUPED
PROVIDERS: ADMIT Student in an Organized Health Care Education/Training Program; ATTEND Student in an Organized Health Care Education/Training Program

== ENCOUNTER 2021-02-16 04:04 | Inpatient (IN) ==
[2021-02-16] MEDS ORDERED: *HR* Nalbuphine 10 MG/ML AMPUL IV PRN (05:23)
[2021-02-16] MEDS ORDERED: Metoclopramide 10 MG/2 ML VIAL IVP PRN (05:23)
[2021-02-16] MEDS ORDERED: Famotidine 20 MG/2 ML VIAL IVP PRN (05:23)
[2021-02-16] MEDS ORDERED: Lidocaine 1% 20 ML MDV INFILT PRN (05:23)
[2021-02-16] MEDS ORDERED: Naloxone 0.4 MG/ML INJ IVP PRN (05:23)
[2021-02-16] MEDS ORDERED: Ringers Solution, Lactated 1,000 ML IVC SCH (05:30)
[2021-02-16] MEDS ORDERED: miSOPROStoL 25 MCG TABLET PO PRN (05:35)
[2021-02-16 05:55] LABS: Basophils % 0.3 %; Eosinophils # 0.1 K/mcL (0.0-0.6); Hematocrit 30.8 % (35.3-44.9); Immature Granulocytes % 0.5 % (0-4); Lymphocytes # 2.2 K/mcL (0.6-4.6); Lymphocytes % 17.8 %; Mean Corpuscular HGB Conc 32.5 g/dL (31.6-35.5); Mean Corpuscular Hemoglobin 27.5 pg (28.0-33.3); Mean Corpuscular Volume 84.8 fL (83.0-100.0); Mean Platelet Volume 9.8 fL (9.4-12.4); Monocytes # 0.7 K/mcL (0.0-1.3); Monocytes % 5.4 %; Neutrophils # 9.2 K/mcL (1.6-8.9); Platelet Count 286 K/mcL (140-400); Red Blood Count 3.63 M/mcL (3.82-4.97); Red Cell Distribution Width 13.5 % (11.5-14.5); White Blood Count 12.3 K/mcL (4.3-11.1)
[2021-02-16 05:59] LABS: Creatinine,Urine 65 mg/dL; Protein/Creatinine Ratio,Urine 0.29 mg/mg (0.00-0.20)
[2021-02-16 06:10] LABS: Alanine Aminotransferase 48 Units/L (7-52); Aspartate Amino Transferase 29 Units/L (13-39); BUN/Creatinine Ratio 14 (6-26); Blood Urea Nitrogen 5 mg/dL (6-20); Lactate Dehydrogenase 171 Units/L (140-271); Uric Acid 3.7 mg/dL (2.3-7.6); eGFR For African Americans > 60 (> 60); eGFR For Non-African Americans > 60 (> 60)
[2021-02-16 06:36] LABS: Adenovirus Not Detected (Not Detect); Bordetella Pertussis Not Detected (Not Detect); Chlamydophila pneumoniae Not Detected (Not Detect); Coronavirus 229E Not Detected (Not Detect); Coronavirus HKU1 Not Detected (Not Detect); Coronavirus NL63 Not Detected (Not Detect); Coronavirus OC43 Not Detected (Not Detect); Human Metapneumovirus Not Detected (Not Detect); Human Rhinovirus/Enterovirus Not Detected (Not Detect); Influenza A Subtype 2009 H1 Not Detected (Not Detect); Influenza B Not Detected (Not Detect); Mycoplasma pneumoniae Not Detected (Not Detect); Parainfluenza Virus 1 Not Detected (Not Detect); Parainfluenza Virus 2 Not Detected (Not Detect); Parainfluenza Virus 3 Not Detected (Not Detect); Parainfluenza Virus 4 Not Detected (Not Detect); Respiratory Syncytial Virus Not Detected (Not Detect); SARS-CoV-2 Not Detected (Not Detect)
[2021-02-16 06:47] LABS: Amphetamine Screen,Urine Negative ng/mL (Cutoff=1000); Barbiturate Screen,Urine Negative ng/mL (Cutoff=200); Benzodiazepines Screen,Urine Negative ng/mL (Cutoff=300); Cannabinoid Screen,Urine Negative ng/mL (Cutoff = 50); Cocaine Screen,Urine Negative ng/mL (Cutoff= 300); Opiate Screen,Urine Negative ng/mL (Cutoff=300); Phencyclidine Screen,Urine Negative ng/mL (Cutoff=25)
[2021-02-16] MEDS: NIFEdipine XL (24 HR) 60 MG TAB.ER.24 PO SCH ×2 (09:40→21:43)
[2021-02-16] MEDS ORDERED: Oxytocin 20 units/ LR 1000 mL 20 UNIT/1,000 ML BAG IVC SCH ×2 (10:30→22:21)
[2021-02-16] MEDS ORDERED: *HR* Labetalol 20 MG/4 ML SYRINGE IVP ONE (10:59)
[2021-02-16] MEDS ORDERED: Calcium Gluconate 1,000 MG/10 ML VIAL IVP PRN ×2 (11:06→22:21)
[2021-02-16] MEDS: Magnesium Sulf 20 gm/SW 500mL 20 GM/500 ML IV.SOLN IVC SCH ×2 (11:53→21:46)
[2021-02-16 12:05] LABS: Basophils # 0.1 K/mcL (0.0-0.2); Basophils % 0.4 %; Eosinophils # 0.1 K/mcL (0.0-0.6); Eosinophils % 1.1 %; Hematocrit 30.3 % (35.3-44.9); Hemoglobin 9.8 g/dL (11.5-15.4); Immature Granulocytes % 0.4 % (0-4); Lymphocytes # 2.4 K/mcL (0.6-4.6); Lymphocytes % 21.3 %; Mean Corpuscular HGB Conc 32.3 g/dL (31.6-35.5); Mean Corpuscular Hemoglobin 27.5 pg (28.0-33.3); Mean Corpuscular Volume 84.9 fL (83.0-100.0); Mean Platelet Volume 9.8 fL (9.4-12.4); Monocytes # 0.7 K/mcL (0.0-1.3); Monocytes % 5.9 %; Platelet Count 282 K/mcL (140-400); Red Blood Count 3.57 M/mcL (3.82-4.97); Red Cell Distribution Width 13.6 % (11.5-14.5); Segmented Neutrophils % 70.9 %; White Blood Count 11.3 K/mcL (4.3-11.1)
[2021-02-16 12:08] LABS: Protein/Creatinine Ratio,Urine 0.24 mg/mg (0.00-0.20)
[2021-02-16 12:18] LABS: Alanine Aminotransferase 51 Units/L (7-52); Aspartate Amino Transferase 30 Units/L (13-39); BUN/Creatinine Ratio 14 (6-26); Blood Urea Nitrogen 5 mg/dL (6-20); eGFR For African Americans > 60 (> 60); eGFR For Non-African Americans > 60 (> 60)
[2021-02-16] MEDS ORDERED: *HR* FentaNYL (PF) 100 MCG/2 ML VIAL ONE (14:32)
[2021-02-16] MEDS ORDERED: Ropivacaine/PF 0.2% 20 ML VIAL ONE (14:32)
[2021-02-16] MEDS ORDERED: Epidural Premix (fent/bupiv) 110 ML EP ONE (14:35)
[2021-02-16] MEDS ORDERED: EPHEDrine 50 MG/ML VIAL IVP PRN (14:56)
[2021-02-16] MEDS: Ondansetron 4 MG/2 ML VIAL IVP PRN ×2 (14:57→20:35)
[2021-02-16] MEDS ORDERED: Epidural Premix (fent/bupiv) 110 ML EP SCH (15:00)
[2021-02-16] MEDS ORDERED: miSOPROStoL 100 MCG TABLET RC ONE (21:00)
[2021-02-16] MEDS ORDERED: Sennosides 8.6 MG TABLET PO PRN (22:21)
[2021-02-16] MEDS ORDERED: Benzocaine/Menthol 56 GM AEROSOL SPRAY TP PRN (22:21)
[2021-02-16] MEDS ORDERED: Lanolin 7 G OINT...G. TP PRN (22:21)
[2021-02-16] MEDS: Ibuprofen 600 MG TABLET PO PRN (22:37)
[2021-02-16] MEDS: Acetaminophen 325 MG TABLET PO PRN (22:37)
[2021-02-17] MEDS: Acetaminophen 325 MG TABLET PO PRN ×2 (04:36→20:07)
[2021-02-17] MEDS: Ibuprofen 600 MG TABLET PO PRN ×2 (04:36→20:26)
[2021-02-17 06:28] LABS: Basophils # 0.1 K/mcL (0.0-0.2); Basophils % 0.3 %; Eosinophils % 0.1 %; Hematocrit 24.5 % (35.3-44.9); Immature Granulocytes % 0.5 % (0-4); Lymphocytes % 12.3 %; Mean Corpuscular HGB Conc 33.1 g/dL (31.6-35.5); Mean Corpuscular Volume 84.8 fL (83.0-100.0); Mean Platelet Volume 9.9 fL (9.4-12.4); Monocytes # 0.8 K/mcL (0.0-1.3); Monocytes % 5.2 %; Neutrophils # 13.2 K/mcL (1.6-8.9); Platelet Count 255 K/mcL (140-400); Red Blood Count 2.89 M/mcL (3.82-4.97); Red Cell Distribution Width 13.6 % (11.5-14.5); Segmented Neutrophils % 81.6 %; White Blood Count 16.1 K/mcL (4.3-11.1)
[2021-02-17 06:29] LABS: Hemoglobin 8.1 g/dL (11.5-15.4)
[2021-02-17 06:44] LABS: Alanine Aminotransferase 44 Units/L (7-52); Aspartate Amino Transferase 25 Units/L (13-39); BUN/Creatinine Ratio 6 (6-26); Blood Urea Nitrogen 2 mg/dL (6-20); Lactate Dehydrogenase 145 Units/L (140-271); Uric Acid 3.5 mg/dL (2.3-7.6); eGFR For African Americans > 60 (> 60); eGFR For Non-African Americans > 60 (> 60)
[2021-02-17] MEDS: Prenatal Vit/FA 1 EACH TABLET PO SCH (07:55)
[2021-02-17] MEDS: Magnesium Sulf 20 gm/SW 500mL 20 GM/500 ML IV.SOLN IVC SCH ×2 (07:56→17:12)
[2021-02-17] MEDS ORDERED: PRENATAL PO SCH (09:00)
[2021-02-17] MEDS ORDERED: NIFEdipine XL (24 HR) 60 MG TAB.ER.24 PO SCH ×2 (09:00)
[2021-02-17] MEDS ORDERED: Ringers Solution, Lactated 1,000 ML ONE (16:09)
[2021-02-17 21:59] LABS: Bilirubin,Urine Negative (Negative); Blood,Urine Large (Negative); Clarity,Urine Clear (Clear); Color,Urine Colorless (Yellow); Glucose,Urine (UA) Normal (Normal); Ketones,Urine Negative (Negative); Leukocyte Esterase,Urine Negative (Negative); Mucus,Urine Few per lpf (None-Few); Nitrite,Urine Negative (Negative); Protein,Urine Negative (Neg-Trace); RBC,Urine 30-50 per hpf (0-3); Specific Gravity,Urine 1.006 (1.010-1.025); Urobilinogen,Urine Normal (Normal); WBC,Urine 0-3 per hpf (0-3)
[2021-02-17] MEDS: NIFEdipine XL (24 HR) 60 MG TAB.ER.24 PO SCH (23:03)
[2021-02-18] MEDS: Prenatal Vit/FA 1 EACH TABLET PO SCH (07:41)
[2021-02-18] MEDS: Ibuprofen 600 MG TABLET PO PRN (07:41)
[2021-02-18] MEDS: NIFEdipine XL (24 HR) 60 MG TAB.ER.24 PO SCH (07:42)
[2021-02-18 07:53] VITALS: BP 135/94
== END 2021-02-18 11:03 | disposition home or self-care (01) | DRG 806 ==
LOC: 1NENULAB 04:04 → 1NENUOBS 02-17 00:54
PROVIDERS: ADMIT Obstetrics & Gynecology; ATTEND Obstetrics & Gynecology